=== PATIENT | female | born 1980 | race African-American/Black ===

== ENCOUNTER → 2025-06-16 | Day surgery (SDC) | payer OTHER ==
[2025-06-13 10:11] LABS: BASOPHILS % 0.6 % (0.0-1.0); EOSINOPHILS % 2.9 % (0.0-6.0); LYMPHOCYTES % 13.9 % (18.0-39.1); MONOCYTES % 5.6 % (4.4-11.3); NEUTROPHILS % 76.7 % (38.7-80.0); RED CELL DISTRIBUTION WIDTH 15.6 % (11.7-14.4)
[2025-06-13 11:18] LABS: EST GLOMERULAR FILTRATION RATE 104.0 ML/MIN (>=60)
[~2025-06-16] MED LIST: ACETAMINOPHEN 1000 MG/100 ML 100 ML IV ONE; ASPIRIN 325 MG TAB PO SCH; CELECOXIB 100 MG CAP PO SCH; DOCUSATE SODIUM 100 MG CAP PO PRN; FAMOTIDINE 20 MG/2 ML VIAL IV ONE; GABAPENTIN300 MG PO; HYDROCHLOROTHIA25 MG PO; HYDROCODON-ACE1 EA12 PO; HYDROCODONE/APAP 7.5MG-325MG 1 EA TAB ONE; HYDROCODONE/APAP 7.5MG-325MG 1 EA TAB PO PRN; HYDROMORPHONE 2MG/ML ONE; LABETALOL HCL 20 ML ONE; LIDOCAINE HCL 2% LOCAL INJ 5 ML SDV VIAL INJ ONE; MELOXICAM7.5 MG PO; METOCLOPRAMIDE HCL 10 MG/2ML VIAL ONE; ONDANSETRON HCL INJ 2MG/ML 2ML 2 MG/ML VIAL IV PRN; ONDANSETRON HCL INJ 2MG/ML 2ML 2 MG/ML VIAL ONE; PROPOFOL IV EMULSION 10 MG/ML 20 ML VIAL ONE; ROCURONIUM BROMIDE 1 ML IV ONE; ROPIVACAINE/EPI/CLONIDINE/KET 50 ML SYRINGE INJ ONE; SUCCINYLCHOLINE CHLORIDE 20 MG/ML 10ML VIAL ONE; SUGAMMADEX SODIUM 200 MG/2 ML VIAL IV ONE; TRAMADOL HCL E100 MG PO
[2025-06-16] MEDS: CEFAZOLIN SODIUM 2 GM ONE (07:21)
[2025-06-16] MEDS: LACTATED RINGER'S 1,000 ML ONE (07:41)
[2025-06-16] MEDS: HYDROCODONE/APAP 7.5MG-325MG 1 EA TAB PO ONE (12:43)
[2025-06-16] MEDS: ONDANSETRON HCL INJ 2MG/ML 2ML 2 MG/ML VIAL IV ONE (14:20)
[2025-06-16 14:30] VITALS: BP 127/77; PULSE 72; RESP 17; O2SAT 98
== END | disposition home or self-care (01) ==
LOC: OR 06:18
PROVIDERS: ATTEND Orthopaedic Surgery Adult Reconstructive Orthopaedic Surgery
DX: M16.11 Unilateral primary osteoarthritis, right hip (principal); I10 Essential (primary) hypertension; E66.813 Obesity, class 3; F12.90 Cannabis use, unspecified, uncomplicated; F31.9 Bipolar disorder, unspecified; Z79.1 Long term (current) use of non-steroidal anti-inflammatories (NSAID); Z79.52 Long term (current) use of systemic steroids; Z79.899 Other long term (current) drug therapy; M54.30 Sciatica, unspecified side; Z88.0 Allergy status to penicillin; Z68.41 Body mass index [BMI] 40.0-44.9, adult; Z01.810 Encounter for preprocedural cardiovascular examination; Z01.812 Encounter for preprocedural laboratory examination
CPT/HCPCS: 27130; 36415 ×2; 72170; 80048; 81025; 85014; 85018; 85025; 86850; 86900; 93005; 97110; 97116; 97161; 97530; C1713 ×3; C1776 ×3; J0131; J1171; J1308; J2003; J2405; J2704; J2765; J3490; J7121; J0330

== ENCOUNTER 2025-07-15 12:39 | Outpatient (RCR) | payer OTHER ==
[~2025-07-15 12:39] MED LIST changes: -ACETAMINOPHEN 1000 MG/100 ML 100 ML IV ONE; -ASPIRIN 325 MG TAB PO SCH; -CELECOXIB 100 MG CAP PO SCH; -DOCUSATE SODIUM 100 MG CAP PO PRN; -FAMOTIDINE 20 MG/2 ML VIAL IV ONE; -HYDROCODONE/APAP 7.5MG-325MG 1 EA TAB ONE; -HYDROCODONE/APAP 7.5MG-325MG 1 EA TAB PO PRN; -HYDROMORPHONE 2MG/ML ONE; -LABETALOL HCL 20 ML ONE; -LIDOCAINE HCL 2% LOCAL INJ 5 ML SDV VIAL INJ ONE; -METOCLOPRAMIDE HCL 10 MG/2ML VIAL ONE; -ONDANSETRON HCL INJ 2MG/ML 2ML 2 MG/ML VIAL IV PRN; -ONDANSETRON HCL INJ 2MG/ML 2ML 2 MG/ML VIAL ONE; -PROPOFOL IV EMULSION 10 MG/ML 20 ML VIAL ONE; -ROCURONIUM BROMIDE 1 ML IV ONE; -ROPIVACAINE/EPI/CLONIDINE/KET 50 ML SYRINGE INJ ONE; -SUCCINYLCHOLINE CHLORIDE 20 MG/ML 10ML VIAL ONE; -SUGAMMADEX SODIUM 200 MG/2 ML VIAL IV ONE
== END 2025-07-19 ==
LOC: PT 12:39
PROVIDERS: ATTEND Orthopaedic Surgery Adult Reconstructive Orthopaedic Surgery
DX: M16.11 Unilateral primary osteoarthritis, right hip (principal); Z96.642 Presence of left artificial hip joint